=== PATIENT | female | born 1980 | race Caucasian/White ===

== ENCOUNTER → 2023-09-30 12:32 | Outpatient (REF) | payer SELFPAY | LOC: HWRAD 12:32 | PROVIDERS: ATTENDING PHYSICIAN Physician Assistant Medical | DX: E78.00 Pure hypercholesterolemia, unspecified (principal) | CPT/HCPCS: 75571 ==

== ENCOUNTER 2023-10-01 18:50 | Emergency (ER) | payer OTHER, SELFPAY ==
[2023-10-01 18:51] VITALS: BP 149/90
[2023-10-01 19:36] VITALS: BP 124/83
[2023-10-01 20:00] VITALS: BP 122/85
[2023-10-01 20:04] LABS: % Basophils 0.3 % (0-2); % Eosinophils 1.7 % (0-6); % Immature Granulocytes 0.1 % (0-0.5); % Lymphocytes 32.5 % (20.5-51.1); % Monocytes 5.4 % (1.7-9.3); Absolute Eosinophils 0.1 10^3/uL (0-0.7); Absolute Lymphocytes 2.4 10^3/uL (1.2-3.4); Absolute Monocytes 0.4 10^3/uL (0.1-0.6); Absolute Neutrophils 4.5 10^3/uL (1.4-6.5); Hematocrit 36.7 % (37.0-47.0); Hemoglobin 12.9 g/dL (12.0-16.0); Mean Corp Hgb Conc. 35.1 g/dL (33.0-37.0); Mean Corpuscular Hgb 30.4 pg (27.0-31.0); Mean Corpuscular Volume 86.6 fL (81.0-99.0); Mean Platelet Volume 8.6 fL (7.4-10.4); Nucleated Red Blood Cells % 0 %; Platelet Count 381 10^3/uL (130-400); Red Blood Cell Count 4.24 10^6/uL (4.20-5.40); Red Cell Dist. Width 12.4 % (11.5-14.5); White Blood Cell Count 7.4 10^3/uL (4.8-10.8)
--- NOTE | 2023-10-01 20:13 | ED.GENMED ---
History of Present Illness
General
Chief Complaint: Chest Pain
Source: patient
Exam Limitations: none
Time Seen by Provider: 10/01/23 19:55
Nursing documentation reviewed up to this point in time: agreed with
Travel History
Have you had any contact with someone who has COVID-19?: No
Do you have any symptoms of coronavirus? Fever > 100 degrees, chills, cough, shortness of breath, sore throat, loss of taste or smell, muscle aches, or headache?: No
History of Present Illness
History of Present Illness:
42 yo female with h/o anxiety, presents for mid chest pain and mid back pain at same level waxing and waning past 3 days, much better most of yesterday but today is worse. Worse with deep breaths. Seen at and sent here to r/o 'aneurysm' Pt denies
any overuse or injury, denies SOB, numbness or tingling in arms or legs. Denies calf pain. Denies palpitations. Saw PCP last week and has lab orders and had a Calcium score test yesterday with no results yet.
Has had indigestion in the past but this feels different.
Past History
Past History
ED Past Medical History: Psychiatric (anxiety. Takes Lorazepam prn, took 0.5 mg at 5 p.m. today with little relief)
ED Past Surgical History: None
Review of Systems
Review of Systems
Allergies reviewed?: Yes
All Other Systems: ROS reviewed and negative except as documented in HPI and ROS
Constitutional: Denies fever
Respiratory: Denies cough or trouble breathing
Cardiac: Reports chest pain; Denies diaphoresis or palpitations
ABD/GI: Denies abdominal pain or nausea
: Denies dysuria
Musculoskeletal: Reports back pain (mid upper back pain)
Skin: Reports no symptoms
Neurological: Reports no symptoms
Phy Exam
Physical Exam
Physical Exam:
GENERAL: No acute distress. A&Ox3.
CONSTITUTIONAL: Afebrile.
RESPIRATORY: Regular respirations, nonlabored, lungs clear.
CARDIOVASCULAR: Regular rate and rhythm, no murmurs, no rubs.
GI: Soft, nontender, normal BS
MUSCULOSKELETAL: Moves with ease. Well perfused. No chest wall or back tenderness
SKIN: Warm, dry, pink
PSYCH: Normal mood and affect. Well kept, interactive and appropriate
NEUROLOGIC: Awake, alert and oriented. No focal neurological deficits
Scores
Heart Score for Chest Pain Patients
STEMI patient?: Not applicable
Course
Orders/Labs/Results
Orders:
Orders
10/01/23 18:55
Electrocardiogram (*1) Urgent
Reason for Study: Chest Pain
EKG- Treatment ONCE
10/01/23 19:57
Complete Blood Count/With Diff Urgent
Comprehensive Metabolic Panel Urgent
Troponin I Urgent
10/01/23 20:29
CR Chest - 2 Views Urgent
Comment:
Reason For Exam: mid chest pain, mid back pain
10/01/23 20:39
D-Dimer Urgent
Abnormal Lab Results
10/01/23
19:57
Hct 36.7 L %
(37.0-47.0)
Creatinine 0.5 L mg/dL
(0.6-1.0)
Calcium 10.7 H mg/dl
(8.4-10.2)
10/01/23 19:57
10/01/23 19:57
Vital Signs
Initial and Last Documented VS:
Initial Vital Signs
Temp Pulse Resp BP Pulse Ox
97.9 F 61 20 149/90 100
10/01/23 18:51 10/01/23 18:51 10/01/23 18:51 10/01/23 18:51 10/01/23 18:51
Last Documented Vital Signs
Temp Pulse Resp BP Pulse Ox
97.9 F 61 20 149/90 100
10/01/23 18:51 10/01/23 18:51 10/01/23 18:51 10/01/23 18:51 10/01/23 18:51
MDM/Problems Addressed
Differential Diagnosis Includes:
costochondritis, pleuritis, GERD, PE (low suspicion)
MDM/Problems Addressed:
42 yo female with h/o anxiety, presents for mid chest pain and mid back pain at same level waxing and waning past 3 days, much better most of yesterday but today is worse. Worse with deep breaths. Seen at and sent here to r/o 'aneurysm' Pt denies
any overuse or injury, denies SOB, numbness or tingling in arms or legs. Denies calf pain. Denies palpitations. Saw PCP last week and has lab orders and had a Calcium score test yesterday with no results yet.
Has had indigestion in the past but this feels different.
EKG sinus bradycardia, no change from previous
9:00 PM
CBC normal
CMP normal
Troponin normal
D-dimer normal
Chest x-ray NAD
Rx for Protonix sent to her pharmacy
*Critical Care Note
Total Time (30-74mins, 75-104mins- exclusive of procedures): Not Applicable
ED Attending Note
-
Portions of this chart may have been created with voice recognition software.� Occasional wrong word or��sound alike� substitutions may have occurred due to the inherent limitations of voice recognition software.
Discharge Plan
Departure
Patient Disposition: Home (Routine Discharge)
Date of Disposition: 10/01/23
Time of Disposition: 21:40
Patient with high blood pressure during this ER visit?: No
Condition: Good
Discharge Problem:
Atypical chest pain
Instructions: Chest Pain That Is Not Caused by the Heart (DC), Acid Reflux and GERD in Adults (DC)
Prescriptions:
New
pantoprazole [Protonix] 40 mg tablet,delayed release (DR/EC)
40 mg PO DAILY Qty: 20 0RF
Referrals:
Anika Vieira PA-C [Family Provider] - Follow up in 10 days
Activity Restrictions/Additional Instructions:
As we discussed, your workup here today shows nothing worrisome, specifically, no sign of a blood clot in your lungs, no heart attack, no aneurysm.
I sent a prescription to your pharmacy for Protonix to take daily for 2 weeks and let your doctor know if it helps.
Interventions
Interventions:
*Risk Screen - Suicide Last Done: 10/01/23 18:52
*General Assessment Last Done: 10/01/23 18:52
*Neglect/Abuse Screening Last Done: 10/01/23 18:52
ED- Fall Risk Assessment Last Done: 10/01/23 20:01
ED- Cardiac Assessment Last Done: 10/01/23 20:01
Discharge Date and Time
Print Language: PORTUGUESE
[2023-10-01 20:28] LABS: Troponin I < 0.012 ng/ml
[2023-10-01 20:31] LABS: ALT (SGPT) 16 U/L (0-35); AST (SGOT) 24 U/L (14-36); Albumin 4.8 g/dl (3.5-5.0); Alkaline Phosphatase 63 U/L (38-126); Blood Urea Nitrogen 11 mg/dl (7-17); Calcium 10.7 mg/dl (8.4-10.2); Carbon Dioxide 23 mmol/L (22-30); Chloride 104 mmol/L (98-107); Glucose 93 mg/dl (70-99); Sodium 136 mmol/L (135-145); Total Bilirubin 0.6 mg/dl (0.2-1.3); Total Protein 7.9 g/dl (6.3-8.2); eGFR > 60.00
[2023-10-01 21:00] VITALS: BP 126/89
[2023-10-01 21:03] LABS: D-Dimer < 0.27 ug/mlFEU (0.00-0.50)
== END 2023-10-01 21:53 | disposition home or self-care (01) ==
LOC: EMR 18:50
PROVIDERS: Registered Nurse; EMERGENCY PHYSICIAN Emergency Medicine; FAMILY PHYSICIAN Physician Assistant Medical
DX: R07.89 Other chest pain (principal); F41.9 Anxiety disorder, unspecified
CPT/HCPCS: 99283; 71046; 80053; 84484; 85025; 85379; 93005

== ENCOUNTER → 2023-12-20 07:55 | Outpatient (REF) | payer OTHER, SELFPAY | LOC: WDC 07:55 | PROVIDERS: ATTENDING PHYSICIAN Obstetrics & Gynecology; FAMILY PHYSICIAN Physician Assistant Medical | DX: R92.2 Inconclusive mammogram (principal) | CPT/HCPCS: 76641 ==

== ENCOUNTER → 2024-02-21 15:44 | Outpatient (REF) | payer OTHER, SELFPAY | LOC: RAD 15:44 | PROVIDERS: ATTENDING PHYSICIAN Physician Assistant | DX: M25.571 Pain in right ankle and joints of right foot (principal) | CPT/HCPCS: 73610 ==

== ENCOUNTER → 2024-03-13 09:01 | Outpatient (REF) | payer OTHER, SELFPAY | LOC: HWWDC 09:01 | PROVIDERS: ATTENDING PHYSICIAN Obstetrics & Gynecology; FAMILY PHYSICIAN Physician Assistant Medical | DX: Z12.31 Encounter for screening mammogram for malignant neoplasm of breast (principal) | CPT/HCPCS: 77063; 77067 ==

== ENCOUNTER → 2024-04-06 18:28 | Outpatient (REF) | payer OTHER, SELFPAY | LOC: MRI 3T 18:28 | PROVIDERS: ATTENDING PHYSICIAN Orthopaedic Surgery; FAMILY PHYSICIAN Physician Assistant Medical | DX: M25.571 Pain in right ankle and joints of right foot (principal) | CPT/HCPCS: 73721 ==

== ENCOUNTER 2024-05-19 08:01 | Outpatient (RCR) | payer OTHER, SELFPAY | END 2024-05-19 23:59 | disposition home or self-care (01) | LOC: RPT 08:01 | PROVIDERS: ATTENDING PHYSICIAN Podiatrist Foot Surgery; FAMILY PHYSICIAN Physician Assistant Medical | DX: S93.401D Sprain of unspecified ligament of right ankle, subsequent encounter (principal); Z73.6 Limitation of activities due to disability | CPT/HCPCS: 97110; 97112; 97140; 97162; 97530 ==

== ENCOUNTER 2024-06-01 11:59 | Outpatient (RCR) | payer OTHER, SELFPAY | END 2024-06-01 13:16 | disposition home or self-care (01) | LOC: RPT 11:59 | PROVIDERS: ATTENDING PHYSICIAN Podiatrist Foot Surgery; FAMILY PHYSICIAN Physician Assistant Medical | DX: S93.401D Sprain of unspecified ligament of right ankle, subsequent encounter (principal); Z73.6 Limitation of activities due to disability | CPT/HCPCS: 97110; 97112; 97140 ==

== ENCOUNTER → 2024-10-07 07:39 | Outpatient (REF) | payer OTHER, SELFPAY | LOC: PAVMRI 07:39 | PROVIDERS: ATTENDING PHYSICIAN Physician Assistant Medical | DX: R51.9 Headache, unspecified (principal) | CPT/HCPCS: 70553; A9575 ==

== ENCOUNTER → 2025-02-23 08:54 | Outpatient (REF) | payer OTHER, SELFPAY | LOC: WDC 08:54 | PROVIDERS: ATTENDING PHYSICIAN Obstetrics & Gynecology | DX: R92.2 Inconclusive mammogram (principal) | CPT/HCPCS: 76641 ==

== ENCOUNTER → 2025-03-15 07:43 | Outpatient (REF) | payer OTHER, SELFPAY | LOC: HWWDC 07:43 | PROVIDERS: ATTENDING PHYSICIAN Obstetrics & Gynecology; FAMILY PHYSICIAN Physician Assistant Medical | DX: Z12.31 Encounter for screening mammogram for malignant neoplasm of breast (principal) | CPT/HCPCS: 77063; 77067 ==